=== PATIENT | male | born 1940 | race Caucasian/White ===

== ENCOUNTER → 2018-02-17 11:10 | Outpatient (BNVA) | payer MEDICARE, OTHER, SELFPAY | PROVIDERS: Visit Provider Internal Medicine Cardiovascular Disease | DX: I47.1 Supraventricular tachycardia (principal); I10 Essential (primary) hypertension | CPT/HCPCS: 99214 ==

== ENCOUNTER 2018-02-22 13:22 | Outpatient (CLI) | payer MEDICARE, OTHER, SELFPAY ==
--- NOTE | 2018-02-22 10:30 | DI.CT_ITS ---
SYMPTOMS/DIAGNOSIS: RIGHT COLICKY PAIN, FLANK PAIN, ? KIDNEY STONE ABDOMINAL AND PELVIC CT: CT examination of the abdomen and pelvis was performed without contrast administration. Images obtained through the lung bases are unremarkable. There is a moderate-sized hiatal hernia containing a significant portion of the gastric fundus. Liver, spleen and pancreas are unremarkable in appearance by noncontrast criteria. No biliary dilatation seen. Abdominal aorta is of normal diameter. No abdominal wall hernia seen. No significant abdominal or pelvic adenopathy seen. The appendix appears normal. No evidence of diverticulitis or bowel obstruction. Adrenals appear normal bilaterally. Kidneys are unremarkable in appearance. No evidence of urinary tract calcification or obstruction. Note is made of biconvex thoracolumbar scoliosis with severe secondary degenerative changes of the facet joints and vertebral endplates. 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 No evidence of urinary tract obstruction or calcification.
== END 2018-02-22 13:42 ==
PROVIDERS: PCP Nurse Practitioner Family; Visit Provider Student in an Organized Health Care Education/Training Program
DX: R10.31 Right lower quadrant pain (principal); K44.9 Diaphragmatic hernia without obstruction or gangrene; M41.35 Thoracogenic scoliosis, thoracolumbar region
CPT/HCPCS: 74176

== ENCOUNTER 2018-10-14 07:58 | Outpatient (CLI) | payer MEDICARE, OTHER, SELFPAY ==
[2018-10-14 11:02] LABS: BUN 20 mg/dL (7-18); CREATININE 0.83 mg/dL (0.70-1.30); Calcium 8.6 mg/dL (8.5-10.1); Calculated LDL 84 mg/dL; Chloride 105 mmol/L (98-107); Cholesterol 156 mg/dL (50-200); Glucose 74 mg/dL (70-100); HDL Cholesterol 63 mg/dL (40-60); Potassium 4.8 mmol/L (3.5-5.1); Sodium 140 mmol/L (136-145); Triglyceride 48 mg/dL (30-150)
== END 2018-10-14 08:18 ==
PROVIDERS: PCP Internal Medicine; Visit Provider Internal Medicine
DX: I10 Essential (primary) hypertension (principal); I47.1 Supraventricular tachycardia
CPT/HCPCS: 36415; 80048; 80061; 83721

== ENCOUNTER 2019-02-10 15:15 | Emergency (ER) | payer MEDICARE, OTHER, SELFPAY ==
[2019-02-10 15:33] VITALS: BP 159/75; PULSE 60; RESP 18; TEMP 36.7; O2SAT 98
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
[2019-02-10] MEDS: Acetaminophen 500 MG TAB 1000 MG PO (16:02)
--- NOTE | 2019-02-10 16:11 | DI.CT_ITS ---
EXAM: CT HEAD CERVICAL SPINE WO CT HEAD CERVICAL SPINE WO CLINICAL HISTORY: Fall, posterior pain and headache. Fall, posterior pain and headache TECHNIQUE: Imaging Protocol: Axial computed tomography images with coronal and sagittal reformatted images were created and reviewed COMPARISON: No exams were available for comparison FINDINGS: Head CT Ventricles and Extra axial spaces: Normal in size and morphology for the patient's age. Hemorrhage: None. Cerebral parenchyma: Normal. Midline shift: None. Brainstem/Cerebellum: Normal. Calvarium: Normal. Visualized Paranasal sinuses/Mastoids: Clear. IMPRESSION: No acute abnormality. FINDINGS: Cervical Spine CT BONES: Vertebral body heights are maintained. Intervertebral disc spaces are normal. Alignment is nor mal. There is no evidence of acute fracture. SOFT TISSUES: No paraspinal hematoma. The airway appears intact. Degenerative disc changes and facet degenerative changes are seen , greatest at C3-4 and C4-5. IMPRESSION: Degenerative changes, no acute abnormality. DATA REPOSITORY: All CT scans at this facility are submitted to the National Radiology Data Registry (NRDR) Dose Index Registry (DIR) with the [employer] (ACR). RADIATION OPTIMIZATION: All CT scans at this facility use at least one of these dose optimization te chniques: automated exposure control; mA and/or kV adjustment per patient size (includes targeted exa ms where dose is matched to clinical indication); or iterative reconstruction.
--- NOTE | 2019-02-10 16:20 | DI.CT_ITS ---
EXAM: CT THORACIC SPINE RECONS CLINICAL HISTORY: Fall, intrascapular pain TECHNIQUE: Images of the spine were reconstructed from the chest CT. COMPARISON: No exams were available for comparison FINDINGS: There is a nondisplaced acute fracture seen at the anterior, inferior endplate of T3. There are deg enerative changes at T4-5 and T5-6. There is a declivity in the superior endplate of, as well as inf erior endplate of T5. Severe degenerative changes as well as scoliosis are seen at the thoracolumbar junction. 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 IMPRESSION: Mild compression fracture of the inferior endplate T3.
--- NOTE | 2019-02-10 16:20 | DI.CT_ITS ---
EXAM: CT CHEST WO CLINICAL HISTORY: Fall, posterior pain of thoracic cage. TECHNIQUE: Imaging protocol: Axial computed tomography images were obtained and coronal and sagittal reformatted images were created and reviewed. CONTRAST MATERIAL: Noncontrast COMPARISON: CHEST WITH CONTRAST from 07/24/2012 CHEST 2 VIEWS PA,LAT from 08/02/2012 FINDINGS: Tracheobronchial tree: Patent where visualized. Mediastinum and Tania: No dominant adenopathy or fluid collection. Pulmonary parenchyma: No consolidation or dominant measurable mass. Emphysema: None. Interstitial changes: None. Pleura: No effusion or pneumothorax. Heart/Aorta: Thoracic aorta non-dilated. The heart is not dilated. Mild coronary artery calcification s are seen. Upper abdomen: Unremarkable. Lymph nodes: Within normal limits. Bones: Degenerative changes and scoliosis are seen. No evidence compression fracture or rib fracture . IMPRESSION: No acute abnormality. DATA REPOSITORY: All CT scans at this facility are submitted to the National Radiology Data Registry (NRDR) Dose Index Registry (DIR) with the [employer] (ACR). RADIATION OPTIMIZATION: All CT scans at this facility use at least one of these dose optimization te chniques: automated exposure control; mA and/or kV adjustment per patient size (includes targeted exa ms where dose is matched to clinical indication); or iterative reconstruction.
--- NOTE | 2019-02-10 16:51 | DI.VRAD_ITS ---
Addendum created by Heriberto Patrick MD on 02/10/2019 5:03:48 PM EST There is a minimally displaced anterior inferior corner fracture of the T3 vertebral body. Please see the CT scan of the thoracic spine report for further details. Initial report created on 02/10/2019 4:51:08 PM EST PROCEDURE INFORMATION: Exam: CT Chest Without Contrast Exam date and time: 02/10/2019 3:56 PM Age: 78 years old Clinical history: Other: Fall, posterior pain of thoracic cage TECHNIQUE: Imaging protocol: Computed tomography of the chest without contrast. Radiation optimization: All CT scans at this facility use at least one of these dose optimization techniques: automated exposure control; mA and/or kV adjustment per patient size (includes targeted exams where dose is matched to clinical indication); or iterative reconstruction. COMPARISON: CT CHEST WITH CONTRAST 07/24/2012 2:04 PM FINDINGS: No focal pulmonary consolidation. No evidence of pneumothorax. No pleural effusion. Bony structures appear intact. Moderate sized hiatal hernia. Visualized upper abdomen otherwise unremarkable. IMPRESSION: No evidence of significant thoracic trauma. Dictated and Authenticated by: Heriberto Patrick MD. Ordering:NADIA Ricci MD
--- NOTE | 2019-02-10 17:00 | DI.VRAD_ITS ---
PROCEDURE INFORMATION: Exam: CT Head Without Contrast Exam date and time: 02/10/2019 4:08 PM Age: 78 years old Clinical history: Other: Fall, posterior pain and headache TECHNIQUE: Imaging protocol: Computed tomography of the head without contrast. Radiation optimization: All CT scans at this facility use at least one of these dose optimization techniques: automated exposure control; mA and/or kV adjustment per patient size (includes targeted exams where dose is matched to clinical indication); or iterative reconstruction. COMPARISON: CT HEAD WITHOUT CONTRAST 07/26/2012 8:00 AM FINDINGS: No evidence of hemorrhage. No mass effect. No acute intracranial abnormality. No evidence of acute fracture. IMPRESSION: No evidence of acute intracranial process. PROCEDURE INFORMATION: Exam: CT Cervical Spine Without Contrast Exam date and time: 02/10/2019 4:08 PM Age: 78 years old Clinical history: Other: Fall, posterior pain and headache TECHNIQUE: Imaging protocol: Computed tomography images of the cervical spine without contrast. Radiation optimization: All CT scans at this facility use at least one of these dose optimization techniques: automated exposure control; mA and/or kV adjustment per patient size (includes targeted exams where dose is matched to clinical indication); or iterative reconstruction. COMPARISON: CT HEAD WITHOUT CONTRAST 07/26/2012 8:00 AM FINDINGS: Diffuse degenerative disc and facet disease. No acute fracture. No focal subluxation. Lung apices unremarkable. IMPRESSION: No evidence of acute bony abnormality. Dictated and Authenticated by: Heriberto Patrick MD. Ordering:NADIA Ricci MD
--- NOTE | 2019-02-10 17:05 | DI.VRAD_ITS ---
PROCEDURE INFORMATION: Exam: CT Thoracic Spine Without Contrast Exam date and time: 02/10/2019 3:56 PM Age: 78 years old Clinical history: Other: Fall, intrascapular pain TECHNIQUE: Imaging protocol: Computed tomography images of the thoracic spine without contrast. Radiation optimization: All CT scans at this facility use at least one of these dose optimization techniques: automated exposure control; mA and/or kV adjustment per patient size (includes targeted exams where dose is matched to clinical indication); or iterative reconstruction. COMPARISON: CT CERVICAL SPINE WITHOUT CONTRA 07/24/2012 1:42 PM FINDINGS: Diffuse degenerative disc and facet disease of the thoracic spine. Mild kyphosis in the lower thoracic spine. No focal subluxation. Minimally displaced right and anterior inferior corner fracture of the T3 vertebral body. Paraspinous soft tissues unremarkable. IMPRESSION: 1. Minimally displaced right and anterior inferior corner fracture of the T3 vertebral body. 2. No other evidence of acute bony abnormality. Dictated and Authenticated by: Heriberto Patrick MD. Ordering:NADIA Ricci MD
[2019-02-10 17:27] VITALS: BP 159/75; PULSE 60; RESP 18; O2SAT 98
== END 2019-02-10 17:23 | disposition home or self-care (01) ==
PROVIDERS: Emergency Provider Emergency Medicine; PCP Internal Medicine
DX: S22.038A Other fracture of third thoracic vertebra, initial encounter for closed fracture (principal); W00.0XXA Fall on same level due to ice and snow, initial encounter; M54.2 Cervicalgia
CPT/HCPCS: 71250; 99284; 70450; 72125; L0172

== ENCOUNTER → 2019-02-26 10:46 | Outpatient (BNVA) | payer MEDICARE, OTHER, SELFPAY | PROVIDERS: PCP Internal Medicine; Referring Provider Nurse Practitioner Family; Visit Provider Internal Medicine Cardiovascular Disease | DX: I47.1 Supraventricular tachycardia (principal); I10 Essential (primary) hypertension | CPT/HCPCS: 99204; 99215 ==

== ENCOUNTER 2019-07-27 21:42 | Emergency (ER) | payer MEDICARE, OTHER, SELFPAY ==
[2019-07-27] VITALS (7 sets, daily range): BP systolic 171; BP diastolic 76; PULSE 61–71; RESP 16–21; TEMP 36.5; O2SAT 98
--- NOTE | 2019-07-27 21:45 | DI.CT_ITS ---
EXAM: CT THORAX ABD/PEL CTA TECHNIQUE: CT angiography of the chest, abdomen and pelvis was performed with bolus infusion of 125 cc of Omnipaque 350. Axial CT angiography was performed with multi-slice acquisition and multi-planar and/or 3D reconstruc tions. FINDINGS: The lungs are clear, except for mild changes of scarring at the left lung base.. No pleural effusio n. No evidence of pulmonary embolic disease. No thoracic aortic dissection. No pleural effusion. No m ediastinal or hilar adenopathy. Tracheobronchial tree appears intact. The liver and spleen are unremarkable in appearance. There is large hiatal hernia. Gallbladder and bile ducts are. There is questionable enhancing 12 millimeter lesion of the head of the pancreas, co rrelation with pancreatic MRI recommended. Adrenals and kidneys are unremarkable except for slight nodularity of left adrenal and very tiny pres umed right cortical renal cyst of the lower pole of the kidney.. No abdominal aortic aneurysm or dissection. Major branches of the abdominal aorta appear normal. No a bdominal or pelvic adenopathy. Normal appendix. No significant abdominal wall hernia. No focal bowel pathology. IMPRESSION: No evidence of acute vascular abnormality of the chest, abdomen or pelvis. Question 12 millimeter enhancing pancreatic head lesion. Correlation with pancreatic MRI recommended . RADIATION DOSE DELIVERED: 798.59mGy.cm Total DLP DATA REPOSITORY: All CT scans at this facility are submitted to the National Radiology Data Registry (NRDR) Dose Index Registry (DIR) with the [employer] (ACR). RADIATION OPTIMIZATION: All CT scans at this facility use at least one of these dose optimization te chniques: automated exposure control; mA and/or kV adjustment per patient size (includes targeted exa ms where dose is matched to clinical indication); or iterative reconstruction.
[2019-07-27] MEDS: Aspirin 81 MG CHEW 324 MG CH (22:03)
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
[2019-07-27 22:22] LABS: Abs Immature Grans 0.01 k/cumm (0.0-0.09); Absolute Basophil Count 0.03 k/cumm (0.0-0.2); Absolute Eosinophil Count 0.19 k/cumm (0.0-0.7); Absolute Lymphocyte Count 2.33 k/cumm (1.2-3.4); Absolute Monocyte Count 0.73 k/cumm (0.11-0.7); Absolute Neutrophil Count 6.17 k/cumm (1.2-6.7); Basophils % 0.3; HCT 41.1 % (40.0-50.0); HGB 14.4 g/dL (13.5-17.5); Immature Grans % 0.1 %; Lymphocytes % 24.6; Mean Corpuscular Hemoglobin 33.3 pg (27.0-33.0); Mean Corpuscular Volume 94.9 fL (80-95); Mean Platelet Volume 9.9 fL (8.0-11.0); Monocytes % 7.7; Neutrophils % 65.3; Platelet Count 218 x1000/uL (130-400); RBC 4.33 m/cumm (4.50-6.00); RBC Distribution Width 13.6 % (11.8-14.1); White Blood Cell Count 9.46 k/cumm (4.4-10.8)
[2019-07-27 22:28] LABS: ALT 21 U/L (16-63); AST 25 U/L (15-37); Albumin 3.6 g/dL (3.4-5.0); Alkaline Phosphatase 99 U/L (46-116); Anion Gap 6.3 mmol/L (3-11); BUN 19 mg/dL (7-18); Bilirubin, Direct 0.14 mg/dL (0.00-0.20); Bilirubin, Total 0.5 mg/dL (0.2-1.0); CO2 27.7 mmol/L (21.0-32.0); CREATININE 0.93 mg/dL (0.70-1.30); Calcium 9.1 mg/dL (8.5-10.1); Chloride 105 mmol/L (98-107); Glucose 100 mg/dL (74-106); Lipase 169 U/L (73-393); Sodium 139 mmol/L (136-145); Total Protein 7.8 g/dL (6.4-8.2)
[2019-07-27] MEDS: Normal Saline Flush 10 ML SYR IVP (22:32)
[2019-07-27] MEDS: Normal Saline - Diluent 50 ML VIAL IV (22:32)
[2019-07-27] MEDS: Omnipaque 350 MG/ML 100 ML BTL IJ (22:32)
[2019-07-27 22:39] LABS: Troponin I < 0.05 ng/mL (<0.06)
[2019-07-27] MEDS: fentaNYL 100 MCG/2 ML VIAL 50 MCG IVP (22:50)
[2019-07-27 22:53] LABS: PTT Activated 24.8 sec (21.0-31.4); Prothrombin Time 10.4 sec (9.3-11.0)
--- NOTE | 2019-07-27 22:53 | DI.VRAD_ITS ---
PROCEDURE INFORMATION: Exam: CT Angiography Chest With Contrast Exam date and time: 07/27/2019 10:24 PM Age: 78 years old Clinical indication: Chest pain; Type not specified; Abdominal pain; Epigastric TECHNIQUE: Imaging protocol: Computed tomographic angiography of the chest with intravenous contrast. 3D rendering: MIP and/or 3D reconstructed images were created by the technologist. Radiation optimization: All CT scans at this facility use at least one of these dose optimization techniques: automated exposure control; mA and/or kV adjustment per patient size (includes targeted exams where dose is matched to clinical indication); or iterative reconstruction. Contrast material: [id number]; Contrast volume: 100 ml; Contrast route: IV RTAC 18G; COMPARISON: CT CHEST WO 02/10/2019 4:20 PM FINDINGS: Pulmonary arteries: Normal. No pulmonary emboli. Aorta: Uncoiled aorta with no aneurysmal dilatation or dissection. Lungs: Unremarkable. No consolidation. No masses. Pleural space: Unremarkable. No pneumothorax. No pleural effusion. Heart: Unremarkable. No cardiomegaly. No pericardial effusion. Mediastinum: Moderate hiatal hernia. Lymph nodes: Unremarkable. No enlarged lymph nodes. Bones/joints: Scoliosis and degenerative change of the spine. Soft tissues: Unremarkable. IMPRESSION: PROCEDURE INFORMATION: Exam: CT Angiography Abdomen and Pelvis With Contrast Exam date and time: 07/27/2019 10:24 PM Age: 78 years old Clinical indication: Chest pain; Type not specified; Abdominal pain; Epigastric TECHNIQUE: Imaging protocol: Computed tomographic angiography of the abdomen and pelvis with intravenous contrast material. 3D rendering: MIP and/or 3D reconstructed images were created by the technologist. Radiation optimization: All CT scans at this facility use at least one of these dose optimization techniques: automated exposure control; mA and/or kV adjustment per patient size (includes targeted exams where dose is matched to clinical indication); or iterative reconstruction. Contrast material: [id number]; Contrast volume: 100 ml; Contrast route: IV RTAC 18G; COMPARISON: CT CHEST WO 02/10/2019 4:20 PM FINDINGS: Aorta: No aortic aneurysm. No aortic dissection. Celiac trunk and mesenteric arteries: No occlusion or significant stenosis. Renal arteries: No occlusion or significant stenosis. Right iliac arteries: No occlusion or significant stenosis. Left iliac arteries: No occlusion or significant stenosis. Liver: No mass. Gallbladder and bile ducts: Unremarkable. No calcified stones. No ductal dilation. Pancreas: 11 mm arterial enhancing focus near the pancreatic head appears to possibly have branching artery coming from it and could indicate small vascular aneurysm but with arterially enhancing mass of the pancreatic head not excluded with dedicated study recommended for further evaluation as clinically warranted. Spleen: Unremarkable. No splenomegaly. Adrenals: Unremarkable. No mass. Kidneys and ureters: Unremarkable. No solid mass. No hydronephrosis. Stomach and bowel: Colonic diverticulosis. Appendix: No evidence of appendicitis. Intraperitoneal space: Unremarkable. No free air. No significant fluid collection. Lymph nodes: Unremarkable. No enlarged lymph nodes. Bladder: Unremarkable. No mass. Reproductive: Unremarkable as visualized. Bones/joints: Scoliosis and degenerative change of the spine. Soft tissues: Unremarkable. IMPRESSION: 1. No acute finding. 2. 11 mm arterial enhancing focus near the pancreatic head appears to possibly have branching artery coming from it and could indicate small vascular aneurysm but with arterially enhancing mass of the pancreatic head not excluded with dedicated study recommended for further evaluation as clinically warranted. Dictated and Authenticated by: Chris Aguila MD. Ordering:CAROLINA Perez MD
[2019-07-27 23:47] LABS: Troponin I < 0.05 ng/mL (<0.06)
[2019-07-28] VITALS: PULSE 68; RESP 22
[2019-07-28 00:09] VITALS: BP 129/68; PULSE 66; PULSE 68; RESP 18
[2019-07-28 00:18] VITALS: BP 129/68; PULSE 67; RESP 17; TEMP 37; O2SAT 99
== END 2019-07-28 00:20 | disposition home or self-care (01) ==
PROVIDERS: Emergency Provider Emergency Medicine; PCP Internal Medicine
DX: R07.89 Other chest pain (principal); I47.1 Supraventricular tachycardia; I10 Essential (primary) hypertension
CPT/HCPCS: 74177; 80053; 83690; 93005; 96374; 99285; 82248; 84484; 85025; 85610; 85730; 93010; 99284; J3010; J3490

== ENCOUNTER 2019-08-06 04:24 | Outpatient (CLI) | payer MEDICARE, OTHER, SELFPAY ==
[2019-08-06 08:23] LABS: Anion Gap 10.3 mmol/L (3-11); BUN 13 mg/dL (7-18); CO2 25.7 mmol/L (21.0-32.0); Calcium 8.6 mg/dL (8.5-10.1); Calculated LDL 85 mg/dL (<100); Chloride 107 mmol/L (98-107); Cholesterol 150 mg/dL (<200); Glucose 81 mg/dL (74-106); HDL Cholesterol 56 mg/dL (40-60); Potassium 4.4 mmol/L (3.5-5.1); Sodium 143 mmol/L (136-145); Triglyceride 48 mg/dL (<150)
== END 2019-08-06 04:44 ==
PROVIDERS: PCP Internal Medicine; Visit Provider Internal Medicine
DX: I10 Essential (primary) hypertension (principal)
CPT/HCPCS: 36415; 80048; 80061

== ENCOUNTER 2019-08-23 01:54 | Outpatient (CLI) | payer MEDICARE, OTHER, SELFPAY ==
--- NOTE | 2019-08-23 07:00 | DI.MRI_ITS ---
EXAM: MR ABDOMEN WO/W CLINICAL HISTORY: F/U ABNL CT,R93.5,PANCREATIC LESION,K86.9. TECHNIQUE: Multiplanar multisequence MRI was performed. COMPARISON: CT CT THORAX ABD/PEL CTA from 07/27/2019 FINDINGS: MR examination of the upper abdomen was performed according to the usual protocol including post cont rast imaging with multi phasic acquisition. Visualized lung bases are unremarkable. No focal abnormality of the liver or spleen. Adrenals and k idneys are unremarkable except for is tiny bilateral renal cysts. No hydronephrosis. Abdominal aort a is of normal diameter. No abdominal adenopathy identified. The gallbladder, bile ducts, and pancr eatic duct are unremarkable with a possible 3 millimeter cyst adjacent to the pancreatic duct in the junction of the head and body of the pancreas. Recent CT examination showed a question of an enhancing lesion of the head of the pancreas. This is not identified by MR examination. There is a possible flow void adjacent to this site and the possib ility that this represents vascularity or even aneurysm is not excluded, however pancreatic mass is u nlikely. IMPRESSION: No pancreatic mass identified by MR criteria. You may wish to obtain a follow-up CT in 12 months to assess the stability of the finding identified on the recent CT angiogram of the abdomen. DATA REPOSITORY:
[2019-08-23] MEDS: Gadoterate meglumine 20 ML VIAL 14 ML IVP (09:10)
== END 2019-08-23 02:14 ==
PROVIDERS: PCP Internal Medicine; Visit Provider Internal Medicine
DX: K86.89 Other specified diseases of pancreas (principal); N28.1 Cyst of kidney, acquired; K86.2 Cyst of pancreas
CPT/HCPCS: 74183

== ENCOUNTER → 2020-02-19 13:05 | Outpatient (BNVA) | payer MEDICARE, OTHER, SELFPAY | PROVIDERS: PCP Internal Medicine; Referring Provider Internal Medicine; Visit Provider Internal Medicine Cardiovascular Disease | DX: R00.0 Tachycardia, unspecified (principal); I36.1 Nonrheumatic tricuspid (valve) insufficiency; I10 Essential (primary) hypertension | CPT/HCPCS: 99214 ==

== ENCOUNTER 2020-11-07 02:52 | Outpatient (CLI) | payer MEDICARE, OTHER, SELFPAY ==
[2020-11-07 08:31] LABS: BUN 22 mg/dL (7-18); Calculated LDL 88 mg/dL (<100); Chloride 105 mmol/L (98-107); Cholesterol 158 mg/dL (<200); Glucose 86 mg/dL (74-106); HDL Cholesterol 58 mg/dL (40-60); Potassium 4.9 mmol/L (3.5-5.1); Sodium 140 mmol/L (136-145); Triglyceride 61 mg/dL (<150)
== END 2020-11-07 02:53 | disposition home or self-care (01) ==
LOC: LBO 02:53
PROVIDERS: PCP Internal Medicine; Visit Provider Internal Medicine
DX: I10 Essential (primary) hypertension (principal); R00.0 Tachycardia, unspecified
CPT/HCPCS: 36415; 80048; 80061

== ENCOUNTER → 2021-02-10 09:49 | Outpatient (BNVA) | payer MEDICARE, OTHER, SELFPAY | PROVIDERS: PCP Internal Medicine; Referring Provider Internal Medicine; Visit Provider Internal Medicine Cardiovascular Disease | DX: I47.1 Supraventricular tachycardia (principal); I10 Essential (primary) hypertension | CPT/HCPCS: 99214; 99213 ==

== ENCOUNTER → 2021-05-11 10:48 | Outpatient (BNVA) | payer MEDICARE, OTHER, SELFPAY | PROVIDERS: PCP Internal Medicine; Referring Provider Internal Medicine; Visit Provider Internal Medicine Cardiovascular Disease | DX: I47.1 Supraventricular tachycardia (principal); I10 Essential (primary) hypertension | CPT/HCPCS: 99214; 99213 ==

== ENCOUNTER 2021-11-16 09:24 | Outpatient (CLI) | payer MEDICARE, OTHER, SELFPAY ==
--- NOTE | 2021-11-16 09:15 | RT.EKG_ITS ---
APPROVED REPORT Exam: Resting ECG Reason for Exam: PAF Patient Location: O HR:55 bpm ECG Measurements Heart Rate 55 AXIS SD 269 P -21 QRSd 147 QRS 3 QT 464 T 8 QTc 444 Conclusion Sinus rhythm...normal P axis, V-rate 50- 99 Prolonged SD interval...SD >220, V-rate 50- 90 Right bundle branch block...QRSd>120, terminal axis(90,270)
== END 2021-11-16 09:25 | disposition home or self-care (01) ==
LOC: DI.CARD 09:25
PROVIDERS: PCP Internal Medicine; Visit Provider Internal Medicine Cardiovascular Disease
DX: I47.1 Supraventricular tachycardia (principal); I10 Essential (primary) hypertension; I45.10 Unspecified right bundle-branch block
CPT/HCPCS: 93010

== ENCOUNTER → 2021-11-16 12:46 | Outpatient (BNVA) | payer MEDICARE, OTHER, SELFPAY | PROVIDERS: PCP Internal Medicine; Visit Provider Internal Medicine Cardiovascular Disease | DX: I47.1 Supraventricular tachycardia (principal); I47.2 Ventricular tachycardia; I10 Essential (primary) hypertension | CPT/HCPCS: 93005; 99213 ==

== ENCOUNTER 2021-11-19 03:48 | Outpatient (CLI) | payer MEDICARE, OTHER, SELFPAY ==
[2021-11-19 08:05] LABS: Anion Gap 6.2 mmol/L (3-11); BUN 18 mg/dL (7-18); CO2 27.8 mmol/L (21.0-32.0); Calcium 8.7 mg/dL (8.5-10.1); Calculated LDL 80 mg/dL (<100); Chloride 105 mmol/L (98-107); Cholesterol 150 mg/dL (<200); Estimated GFR 76.08 (mL/min/1.73m2); Glucose 82 mg/dL (74-106); HDL Cholesterol 60 mg/dL (40-60); Potassium 4.1 mmol/L (3.5-5.1); Sodium 139 mmol/L (136-145); Triglyceride 51 mg/dL (<150)
== END 2021-11-19 03:49 | disposition home or self-care (01) ==
PROVIDERS: PCP Internal Medicine; Visit Provider Internal Medicine
DX: I47.1 Supraventricular tachycardia (principal); I10 Essential (primary) hypertension
CPT/HCPCS: 36415; 80048; 80061

== ENCOUNTER 2022-05-28 11:04 | Outpatient (CLI) | payer MEDICARE, OTHER, SELFPAY ==
--- NOTE | 2022-05-28 11:30 | RT.EKG_ITS ---
APPROVED REPORT Exam: Resting ECG Reason for Exam: tachycardia Patient Location: O HR:56 bpm ECG Measurements Heart Rate 56 AXIS PA 254 P 160 QRSd 148 QRS -33 QT 453 T 144 QTc 438 Conclusion Sinus or ectopic atrial rhythm...P axis (-45,135) Prolonged PA interval...PA >220, V-rate 50- 90 Right bundle branch block...QRSd>120, terminal axis(90,270)
== END 2022-05-28 11:05 | disposition home or self-care (01) ==
LOC: DI.CARD 11:32
PROVIDERS: PCP Student in an Organized Health Care Education/Training Program; Referring Provider Student in an Organized Health Care Education/Training Program; Visit Provider Internal Medicine Cardiovascular Disease
DX: R00.0 Tachycardia, unspecified (principal); I45.10 Unspecified right bundle-branch block
CPT/HCPCS: 93010

== ENCOUNTER → 2022-05-28 11:04 | Outpatient (BNVA) | payer MEDICARE, OTHER, SELFPAY | PROVIDERS: PCP Student in an Organized Health Care Education/Training Program; Referring Provider Student in an Organized Health Care Education/Training Program; Visit Provider Internal Medicine Cardiovascular Disease | DX: Z86.16 Personal history of COVID-19 (principal); I47.1 Supraventricular tachycardia; I10 Essential (primary) hypertension | CPT/HCPCS: 99213 ==

== ENCOUNTER 2022-05-31 08:44 | Outpatient (CLI) | payer MEDICARE, OTHER, SELFPAY | END 2022-05-31 08:45 | disposition home or self-care (01) | PROVIDERS: PCP Student in an Organized Health Care Education/Training Program; Visit Provider Internal Medicine Cardiovascular Disease | DX: I47.1 Supraventricular tachycardia (principal) | CPT/HCPCS: 93246 ==

== ENCOUNTER 2022-06-22 11:18 | Outpatient (CLI) | payer MEDICARE, OTHER, SELFPAY ==
--- NOTE | 2022-06-22 12:26 | W.CARDEVENT ---
Date of service: 06/22/22 Time of Service: 12:26 Cardiac Event Recorder Referring Provider:: Trey Agudelo Indications:: SVT Cardiac Event Note: This is a 14-day cardiac event monitor Predominant rhythm was sinus with first-degree AV block and an average heart rate of 58. Minimum was 40, maximum 146 There were rare atrial and ventricular ectopic beats There was no atrial fibrillation There was one 14 beat run of supraventricular tachycardia which was asymptomatic Mobitz 1 second-degree AV block was noted Patient symptoms were reported the majority of which did not correlate with any dysrhythmia. Some symptoms corresponded to atrial and ventricular ectopics
== END 2022-06-22 11:19 | disposition home or self-care (01) ==
LOC: CARDOPNVT 11:18
PROVIDERS: PCP Student in an Organized Health Care Education/Training Program; Visit Provider Internal Medicine Cardiovascular Disease
DX: I47.1 Supraventricular tachycardia (principal); I44.1 Atrioventricular block, second degree
CPT/HCPCS: 93248

== ENCOUNTER → 2022-07-08 14:09 | Outpatient (BNVA) | payer MEDICARE, OTHER, SELFPAY | PROVIDERS: PCP Student in an Organized Health Care Education/Training Program; Visit Provider Internal Medicine Cardiovascular Disease | DX: I47.1 Supraventricular tachycardia (principal); I10 Essential (primary) hypertension | CPT/HCPCS: 99214 ==

== ENCOUNTER 2022-07-20 00:55 | Outpatient (CLI) | payer MEDICARE, OTHER, SELFPAY ==
--- NOTE | 2022-07-20 06:30 | ETT_ITS ---
APPROVED REPORT Exam: Exercise Treadmill Patient Location: Out-Patient Room/Bed: Stress Nurse: Kanika Quinn RN Ordering Provider:JAKY CESAR, Contact Number: [phone] BMI: 23.56 Baseline Rhythm: Sinus Rhythm, RBBB Comment: Occasional PVC Indications: Abnormal ekg, ill defined heart disease Medical History Medical History: Non sustained V tach, essential (primary HTN), COVID, tricuspid valave regurgitation Cardiac Medications: Vitamin D3, diltiazem ER, glucosamine sulfate, curcumin Allergies: Hydrocodone bitartrate Cardiac Risk Factors: Family hx, HTN Previous Cardiac Procedures: None Pretest Chest Pain Characteristics: None Exercise History: Physically active Physical Disabilities: None Lung Sounds: Clear to auscultation Heart Sounds: Regular Stress Test Details Test: Exercise stress testing was performed using a Silvestre protocol. Rest Stress HR Resting HR Supine: 63 bpm Max Heart Rate (APMHR): 140 bpm Resting HR Standin bpm Target HR (85% APMHR): 119 bpm Max HR Achieved: 120 bpm % of APMHR: 86 Recovery HR: 62 bpm HR response to stress: Blunted HR response to stress BP Resting BP Supine: 168/90 mmHg Resting BP Standin/90 mmHg Max BP: 168/90 mmHg Recovery BP: 158/80 mmHg BP response to stress: Normal blood pressure response to stress. ECG Resting ECG: Sinus Rhythm, RBBB Ectopy: 63 Stress ECG: Sinus Tachycardia, RBBB ST Change: Unable to determine due to artifact Arrhythmia: Frequent PAC's, occasional PVC's Comment: Significant artifiact, test terminated due to inability to interpret Recovery ECG: Sinus Rhythm, RBBB Recovery ST Change: No significant ST segment changes noted Recovery Arrhythmia: Frequent PAC's, Frequent PVC's, triplet Clinical Reason for Termination: Artifact (unable to read EKG) Stress Symptoms: None Exercise duration: 10 min04 sec Highest Stage Reached: Stage 4: 4.2 mph at 16% grade. Exercise capacity: 11.94 METs Angina Score: None Poe Treadmill Score: 7.8 Rate Pressure Product: Stress ECG Conclusion 1. Resting electrocardiogram showed right bundle branch block 2. Patient exercised on the Silvestre protocol and completed a workload of 11.94 METS, above average exer cise capacity 3. Normal heart rate and blood pressure response to exercise. Peak heart rate achieved was 86% of pr edicted for age 4. Electrocardiographic portion of the test was not interpretable due to excessive artifact 5. Atrial and ventricular ectopics were noted Poe Treadmill Score is 7.8 which is Low risk. Stress Test Summary STAGE Time (mins) Speed (mph) Grade (%) HR BP SpO2 SYMPTOMS METS Supine 62 168/90 Standing 64 160/90 1 3 1.7 10 75 148/70 4.5 2 6 2.5 12 83 154/80 7 3 9 3.4 14 96 150/64 10 4 12 4.2 16 126 13 1 min recovery 91 168/72 3 min recovery 63 170/82 6 min recovery 62 158/80 Test terminated due to inability to interpret EKG safely due to artifact.
== END 2022-07-20 01:15 ==
LOC: DI 00:56
PROVIDERS: PCP Student in an Organized Health Care Education/Training Program; Visit Provider Internal Medicine Cardiovascular Disease
DX: I51.89 Other ill-defined heart diseases (principal); R94.31 Abnormal electrocardiogram [ECG] [EKG]
CPT/HCPCS: 93306; 93017

== ENCOUNTER → 2022-11-16 13:20 | Outpatient (BNVA) | payer MEDICARE, OTHER, SELFPAY | PROVIDERS: PCP Student in an Organized Health Care Education/Training Program; Visit Provider Internal Medicine Cardiovascular Disease | DX: I51.89 Other ill-defined heart diseases (principal); I10 Essential (primary) hypertension; I47.1 Supraventricular tachycardia | CPT/HCPCS: 99214 ==

== ENCOUNTER 2022-11-30 01:46 | Outpatient (CLI) | payer MEDICARE, OTHER, SELFPAY ==
[2022-11-30 08:55] LABS: ALT 20 U/L (16-63); AST 22 U/L (15-37); Albumin 3.4 g/dL (3.4-5.0); Alkaline Phosphatase 113 U/L (46-116); Anion Gap 6.8 mmol/L (3-11); BUN 22 mg/dL (7-18); Bilirubin, Total 0.6 mg/dL (0.2-1.0); CO2 27.2 mmol/L (21.0-32.0); CREATININE 1.2 mg/dL (0.70-1.30); Calcium 9.3 mg/dL (8.5-10.1); Chloride 104 mmol/L (98-107); Estimated GFR 60.75 (mL/min/1.73m2); Glucose 81 mg/dL (74-106); Potassium 4.3 mmol/L (3.5-5.1); Sodium 138 mmol/L (136-145)
[2022-11-30 09:26] LABS: FREE T4 1.16 ng/dL (0.76-1.46)
[2022-12-02 19:00] LABS: Lab Add On Test DONE
[2022-12-03 19:38] LABS: T3, Total 120 ng/dL (97-169)
== END 2022-11-30 01:47 | disposition home or self-care (01) ==
LOC: LBO 01:46
PROVIDERS: PCP Student in an Organized Health Care Education/Training Program; Visit Provider Student in an Organized Health Care Education/Training Program
DX: I10 Essential (primary) hypertension; I47.10 Supraventricular tachycardia, unspecified
CPT/HCPCS: 36415; 80053; 84439; 84443; 84480

== ENCOUNTER 2022-12-09 08:54 | Outpatient (CLI) | payer MEDICARE, OTHER, SELFPAY | END 2022-12-09 08:55 | disposition home or self-care (01) | PROVIDERS: PCP Student in an Organized Health Care Education/Training Program; Visit Provider Student in an Organized Health Care Education/Training Program | DX: R00.0 Tachycardia, unspecified | CPT/HCPCS: 93246 ==

== ENCOUNTER 2022-12-17 10:39 | Outpatient (CLI) | payer MEDICARE, OTHER, SELFPAY ==
--- NOTE | 2022-12-17 08:45 | DI.US_ITS ---
APPROVED REPORT EXAM: Comprehensive 2D, Doppler, and color-flow Echocardiogram Patient Location: Out-Patient Research Manager: Swapnil Carney RDCS (AE) Indications: tachycardia, worsened SVT, dizziness, athletic history Other Information Study Quality: Good Conclusion Normal left ventricular wall thickness and chamber size. Ejection fraction is 65%. Wall motion is n ormal Normal right ventricular size and systolic function Left atrium is mildly dilated. Right atrial size is normal. Atrial septum is thin and hypermobile Aortic valve is mildly sclerotic and trileaflet with mild regurgitation Normal mitral valve with mild regurgitation Normal tricuspid valve with moderate regurgitation. 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 The left ventricular systolic function is normal. The left ventric ular ejection fraction is within the normal range. There is normal left ventricular wall thickness. T here is normal LV segmental wall motion. There is no ventricular septal defect visualized. LVEF is 65 %. Right Ventricle The right ventricle is normal size. The right ventricular systolic function is normal. The RVSP is 24 .9 mmHg. Atria Left atrium is mildly dilated. The right atrium size is normal. Atrial septum is thin and hypermobile Aortic Valve The Aortic valve is mildly sclerotic. Aortic valve is trileaflet. There is no aortic valvular stenosi s. Mild aortic regurgitation. Mitral Valve The mitral valve is normal in structure. No evidence of mitral valve stenosis. Mild mitral regurgitat ion. Tricuspid Valve The tricuspid valve is normal in structure. There is no tricuspid valve stenosis. Moderate tricuspid regurgitation. Pulmonic Valve Pulmonic valve is not well visualized. There is no pulmonic valvular regurgitation. Great Vessels The aortic root is normal in size. The ascending aorta is moderately dilated. Aortic arch is not well visualized. IVC is normal in size and collapses >50% with inspiration. Pericardium There is no pericardial effusion. 2D Dimensions IVSD d PLAX 0.94 cm M: 0.6-1.2 Ao Root d 3.82 cm M: 3.1 - 3.7 LVPW d PLAX 0.82 cm M: 0.6 - 1.2 Ao Asc Diam d 4.08 cm M: 2.6 - 3.4 LVID d PLAX 5.29 cm M: 4.2 - 5.8 LVDs 3.36 cm M: 2.5 - 4.0 LV EF Teichholz 65.8 % FS 36.48 % LV EDV (Teich) 134.8 mL LV ESV (Teich) 46.1 mL Stroke Vol Index (Teich) 49.01 M-Mode TAPSE 3.09 cm (M/F) >1.7 Auto EF LV EDV A4C 108.1 mL LV EDV A2C 127.3 mL LV EDV BP 116.9 mL LV ESV A4C 39.4 mL LV ESV A2C 45.0 mL LV ESV BP 42.6 mL LVEF(%) A4C 63.6 % LVEF(%) A2C 64.7 % LVEF(%) BP 63.5 % LV SV A4C 68.8 ml LV SV A2C 82.3 ml LV SV BP 74.3 ml LV CO A4C 4.0 L/min LV CO A2C 4.6 L/min LV CO BP 4.3 L/min HR A4C 58.63 BPM HR A2C 55.56 BPM LV EDV Index (BP) LA Volume LA Length A4C 5.7 cm LA Length A2C LA Area A4C s 20.12 cm2 LA Area A2C s LA Vol A4C A-L 60.51 mL LA Vol A2C A-L LA Vol Biplane A-L LA Vol A4C MOD 60.8 mL LA Vol A2C MOD LA Vol BP MOD RA Volume RA Area A4C 14.1 cm2 RA ESV A4C (A-L) 34.9mL RA Vol/BSA A4C A-L RA Length A4C 4.8 cm RA ESV A4C (MOD) 34.5mL LV Diastology MV E' medial 0.092 (>0.07 m/s) MV E Vmax 1.06 (0.4-1.3 m/s) MV E/E' MED 11.42 (<14) MV A Vmax 0.95 (0.4-1.3 m/s) MV E' lateral 0.104 (>0.1 m/s) E/A Ratio 1.1 MV E/E' LAT 10.10 (<14) MV E' Average 0.098 m/s MV E/E'(average) 10.72 Aortic Valve AoV Vmax 1.76 m/s LVOT Vmax 1.14 m/s AoV Peak Grad 12.3 mmHg LVOT Peak Grad 5.2 mmHg AoV Area (Vmax) 1.64 cm2 LVOT VTI 0.271 m AoV VTI 0.373 m LVOT Mean Grad 2.8 mmHg AoV Mean Ignacio. 1.14 m/s LVOT SV 68.49 mL AoV Mean Grad 6.0 mmHg LVOT Diam s 1.75 cm AoV Area (VTI) 1.84 cm2 Velocity Ratio 0.65 Mitral Valve MV DT 137 (160-240 msec) Pulmonary Valve PV Vmax 0.89 (0.5-1.5 m/s) RVOT Vmax 0.62 m/s PV Peak Grad 3.2 mmHg RVOT Peak Gr. 1.5 mmHg PV Mean Ignacoi 0.63 m/s RVOT VTI 0.115 m PV Mean Grad 1.8 mmHg RVOT Mean Gr. 0.8 mmHg Tricuspid Valve RA Pressure 3.00 mmHg TR Vmax 2.34 m/s TR Peak Grad 21.8 mmHg RVSP (TR) 24.9 mmHg
== END 2022-12-17 10:59 ==
LOC: DI 10:40
PROVIDERS: PCP Student in an Organized Health Care Education/Training Program; Visit Provider Student in an Organized Health Care Education/Training Program
DX: I36.1 Nonrheumatic tricuspid (valve) insufficiency (principal); I51.89 Other ill-defined heart diseases
CPT/HCPCS: 93306

== ENCOUNTER 2023-01-03 08:27 | Outpatient (CLI) | payer MEDICARE, OTHER, SELFPAY ==
--- NOTE | 2023-01-04 11:44 | CER_ITS ---
Date of service: 01/04/23 Time of Service: 11:44 Cardiac Event Recorder Referring Provider:: Rose Marie Min Indications:: Sick sinus syndrome Cardiac Event Note: This is a cardiac event monitor ordered for sick sinus syndrome. Patient was monitored for a total of 13 days and 8 hours Predominant rhythm was sinus with an average heart rate of 60. There was first- degree AV block. Minimum heart rate was 32 maximum was 136 There were rare premature ventricular contractions, rare couplets and one 5 beat run of nonsustained ventricular tachycardia There were moderately frequent atrial premature beats comprising 4% of total Episodes of supraventricular tachycardia were recorded, which overall had heart rates ranging from 10 7-1 36. These may represent sinus tachycardia There was no atrial fibrillation, no high-grade AV block, no pauses greater than 3 seconds Multiple patient symptoms were reported. About 50% of the time they correlated with sinus tachycardia, but other times correlated to sinus rhythm with heart rates ranging from 58-86 beats a minute
== END 2023-01-03 08:28 | disposition home or self-care (01) ==
LOC: CARDOPNVT 08:27
PROVIDERS: PCP Student in an Organized Health Care Education/Training Program; Visit Provider Internal Medicine Cardiovascular Disease
DX: I49.5 Sick sinus syndrome (principal); I49.1 Atrial premature depolarization; I47.10 Supraventricular tachycardia, unspecified
CPT/HCPCS: 93248

== ENCOUNTER 2023-10-17 10:36 | Outpatient (CLI) | payer MEDICARE, OTHER, SELFPAY ==
[2023-10-17 15:18] LABS: TSH (W/Ref FT4) 4.23 uIU/mL (0.36-3.74)
[2023-10-17 15:35] LABS: FREE T4 1.35 ng/dL (0.76-1.46)
[2023-10-17 23:00] LABS: T3,Free 3.3 pg/mL (2.8-5.3)
== END 2023-10-17 10:37 | disposition home or self-care (01) ==
LOC: LBO 10-27 10:36
PROVIDERS: PCP Student in an Organized Health Care Education/Training Program; Visit Provider Student in an Organized Health Care Education/Training Program
DX: R00.0 Tachycardia, unspecified; R79.89 Other specified abnormal findings of blood chemistry; R00.9 Unspecified abnormalities of heart beat
CPT/HCPCS: 36415; 80048; 84439; 84443; 84481; 85018

== ENCOUNTER 2023-12-29 03:03 | Outpatient (CLI) | payer MEDICARE, OTHER, SELFPAY ==
[2023-12-29 15:29] LABS: HGB 14.4 g/dL (13.5-17.5)
[2023-12-29 15:52] LABS: Anion Gap 10.1 mmol/L (3-11); BUN 26 mg/dL (7-18); CO2 26.9 mmol/L (21.0-32.0); CREATININE 1.2 mg/dL (0.70-1.30); Calcium 9.3 mg/dL (8.5-10.1); Chloride 105 mmol/L (98-107); Estimated GFR 60.38 (mL/min/1.73m2); Glucose 111 mg/dL (74-106); Potassium 3.8 mmol/L (3.5-5.1); Sodium 142 mmol/L (136-145)
== END 2023-12-29 03:04 | disposition home or self-care (01) ==
LOC: LBO 03:03
PROVIDERS: PCP Student in an Organized Health Care Education/Training Program; Referring Provider Student in an Organized Health Care Education/Training Program; Visit Provider Student in an Organized Health Care Education/Training Program
DX: I10 Essential (primary) hypertension (principal); Z86.2 Personal history of diseases of the blood and blood-forming organs and certain disorders involving the immune mechanism; I48.91 Unspecified atrial fibrillation
CPT/HCPCS: 36415; 80048; 85018

== ENCOUNTER 2024-02-09 03:25 | Outpatient (CLI) | payer MEDICARE, OTHER, SELFPAY ==
[2024-02-09 15:26] LABS: Anion Gap 6.5 mmol/L (3-11); BUN 16 mg/dL (7-18); CO2 29.5 mmol/L (21.0-32.0); Calcium 9.3 mg/dL (8.5-10.1); Chloride 104 mmol/L (98-107); Estimated GFR 75.14 (mL/min/1.73m2); Glucose 101 mg/dL (74-106); Potassium 4.1 mmol/L (3.5-5.1); Sodium 140 mmol/L (136-145)
== END 2024-02-09 03:26 | disposition home or self-care (01) ==
LOC: LBO 03:25
PROVIDERS: PCP Student in an Organized Health Care Education/Training Program; Visit Provider Student in an Organized Health Care Education/Training Program
DX: Z91.89 Other specified personal risk factors, not elsewhere classified (principal); E87.6 Hypokalemia; T50.2X5A Adverse effect of carbonic-anhydrase inhibitors, benzothiadiazides and other diuretics, initial encounter
CPT/HCPCS: 36415; 80048

== ENCOUNTER 2024-12-31 03:47 | Outpatient (CLI) | payer MEDICARE, OTHER, SELFPAY ==
[2024-12-31 15:05] LABS: Anion Gap 7.3 mmol/L (3-11); BUN 21 mg/dL (7-18); CO2 30.7 mmol/L (21.0-32.0); Calcium 9.4 mg/dL (8.5-10.1); Chloride 100 mmol/L (98-107); Glucose 91 mg/dL (74-106); Potassium 3.7 mmol/L (3.5-5.1); Sodium 138 mmol/L (136-145); TSH (W/Ref FT4) 4.03 uIU/mL (0.36-3.74)
== END 2024-12-31 03:48 | disposition home or self-care (01) ==
LOC: LBO 03:47
PROVIDERS: Absent Provider Nurse Practitioner Adult Health; PCP Nurse Practitioner Adult Health; Referring Provider Nurse Practitioner Adult Health; Visit Provider Nurse Practitioner Adult Health
DX: E03.8 Other specified hypothyroidism (principal); I10 Essential (primary) hypertension
CPT/HCPCS: 36415; 80048; 84439; 84443